=== PATIENT | male | born 1965 | race Caucasian/White ===

== ENCOUNTER 2020-04-02 10:06 | Outpatient (CLI) | payer OTHER, SELFPAY ==
--- NOTE | ~2020-04-02 | US_ITS ---
EXAMINATION: US carotid duplex BI DATE: 04/02/2020 10:53 INDICATION: Carotid atherosclerotic calcification seen on x-ray. TECHNIQUE: Grayscale, color Doppler, and pulsed Doppler images of the cervical carotid arteries were obtained. The degree of vessel stenosis is placed in one of the following categories: normal, <50%, 5 0-69%, >=70% but less than near-occlusion, near-occlusion, or total occlusion. Note that percent sten osis relative to normal distal artery lumen diameter is indirectly measured from velocity measurement s as described by Aniceto, et al. Radiology 2003; 229:340-346. COMPARISON: None. FINDINGS: RIGHT: The right common carotid artery (CCA) peak systolic velocity (PSV) is 126 cm/s. The right internal ca rotid artery (ICA) PSV is 100 cm/s. The right ICA end-diastolic velocity (EDV) is 29 cm/s. The right ICA/CCA PSV ratio is 0.8. Grayscale and color Doppler images yield an estimate of <50% diameter reduc tion from plaque in the ICA. The external carotid artery (ECA) PSV is 134 cm/s. There is antegrade fl ow in the right vertebral artery. LEFT: The left CCA PSV is 110 cm/s. The left ICA PSV is 126 cm/s. The left ICA EDV is 40 cm/s. The left ICA /CCA PSV ratio is 1.1. Grayscale and color Doppler images including secondary Doppler criteria yield an estimate of <50% diameter reduction from small amount of plaque on grayscale images in the ICA. Th e ECA PSV is 126 cm/s. There is antegrade flow in the left vertebral artery. IMPRESSION: 1. <50% stenosis in the right internal carotid artery. 2. <50% stenosis in the left internal carotid artery. Reviewed, dictated and finalized at location A.
== END 2020-04-02 10:07 | disposition home or self-care (01) ==
PROVIDERS: PCP Family Medicine; Visit Provider Family Medicine
DX: E11.29 Type 2 diabetes mellitus with other diabetic kidney complication (principal); I65.23 Occlusion and stenosis of bilateral carotid arteries
CPT/HCPCS: 93880

== ENCOUNTER 2020-11-03 07:44 | Outpatient (CLI) | payer OTHER, SELFPAY ==
--- NOTE | ~2020-11-03 | MR_ITS ---
EXAMINATION: MR cervical spine wo con DATE: 11/03/2020 09:22 INDICATION: Neck trauma. Myelopathy. TECHNIQUE: Magnetic resonance imaging (MRI) of the cervical spine was performed without intravenous c ontrast. Sequences included sagittal T2-weighted FSE, sagittal STIR FSE, sagittal T1-weighted FSE, ax ial MERGE, and axial T2-weighted FSE. COMPARISON: Cervical spine MRI 07/26/2019 FINDINGS: Bone alignment is normal. Vertebral body heights are normal. There is mildly decreased disc height at C5-C6 and mildly decreased disc height at C6-C7. The spinal cord signal intensity is clark l. The following disc levels are specifically discussed: C2-C3: The disc does not extend beyond the endplate margin. There is no uncovertebral joint osteoarth ritis. There is mild right and severe left facet joint osteoarthritis. There is mild left neural fora jayant stenosis. There is no central canal stenosis. C3-C4: The disc does not extend beyond the endplate margin. There is moderate right and mild left unc overtebral joint osteoarthritis. There is mild bilateral facet joint osteoarthritis. There is mild ri ght neural foraminal stenosis. There is no central canal stenosis. C4-C5: The disc is bulging and has an annular fissure. There is mild bilateral uncovertebral joint os teoarthritis. There is mild bilateral facet joint osteoarthritis. There is mild right neural foramina l stenosis. There is mild central canal stenosis. C5-C6: The disc is bulging. There is severe bilateral uncovertebral joint osteoarthritis. There is mi ld bilateral facet joint osteoarthritis. There is mild bilateral neural foraminal stenosis. There is mild central canal stenosis with ventral indentation of spinal cord. C6-C7: The disc is bulging. There is mild right and moderate left uncovertebral joint osteoarthritis. There is mild lateral facet joint osteoarthritis. There is mild left neural foraminal stenosis. Ther e is mild central canal stenosis. C7-T1: The disc does not extend beyond the endplate margin. There is no uncovertebral joint osteoarth ritis. There is severe bilateral facet joint osteoarthritis. There is mild bilateral neural foraminal stenosis. There is no central canal stenosis. IMPRESSION: 1. Moderate cervical spondylosis, stable from 07/26/2019. Reviewed, dictated and finalized at location A.
== END 2020-11-03 07:45 | disposition home or self-care (01) ==
LOC: ANHIMG 07:49
PROVIDERS: PCP Family Medicine; Visit Provider Nurse Practitioner Acute Care
DX: M47.13 Other spondylosis with myelopathy, cervicothoracic region (principal)
CPT/HCPCS: 72141

== ENCOUNTER → 2020-11-17 01:37 | Outpatient (CLI) | payer OTHER, SELFPAY ==
[2020-11-17 20:13] LABS: SARS-CoV-2 RNA PCR Negative
== END ==
PROVIDERS: Physician Assistant; PCP Family Medicine; Visit Provider Internal Medicine Cardiovascular Disease
DX: R05 Cough (principal); R52 Pain, unspecified; Z20.822 Contact with and (suspected) exposure to COVID-19
CPT/HCPCS: C9803; U0003; U0005

== ENCOUNTER 2020-11-20 02:51 | Day surgery (SDC) | payer OTHER, SELFPAY ==
[2020-11-19 15:38] VITALS: BMI 31.4
[2020-11-20] VITALS (12 sets, daily range): BP systolic 127–167; BP diastolic 72–93; PULSE 80–98; RESP 14–22; TEMP 36.4–36.5; O2SAT 92–98; BMI 31.2
[2020-11-20 09:55] LABS: Hematocrit 45.6 % (42.0-52.0); Hemoglobin 16.1 g/dL (14.0-18.0); Mean Corpuscular HGB Conc 35.3 g/dl (32-36); Mean Corpuscular Hemoglobin 31.1 pg (26-34); Mean Corpuscular Volume 88.2 fl (80-100); Mean Platelet Volume 10.5 fl (7.4-10.4); Platelet Count Result 206 k/mm3 (150-375); Red Blood Count 5.17 M/mm3 (4.6-6.20); Red Cell Distribution Width 11.8 % (11.5-14.5); White Blood Count 6.8 K/mm3 (4.5-10.0)
[2020-11-20 10:04] LABS: INR 0.8; Prothrombin Time 12.1 Seconds (11.1-14.7)
[2020-11-20 10:15] LABS: Anion Gap 10 mmol/L (8-16); Blood Urea Nitrogen 13 mg/dL (9-20); Calcium 9.2 mg/dL (8.4-10.2); Carbon Dioxide 23 mmol/L (22-30); Chloride 106 mmol/L (98-107); Estimated CRCL calculation 110 ml/min; Estimated Glomerular Filt Rate > 60; Glucose 155 mg/dL (75-110); Potassium 4.3 mmol/L (3.4-5.0); Sodium 139 mmol/L (137-145)
--- NOTE | 2020-11-20 11:00 | WPDHPUPDATE1 ---
History and Physical Update Update Date/Time: 11/20/20 11:00 History and Physical has been reviewed, including an updated exam of the patient. There are NO changes in the patient's condition. Risks, benefits, and alternatives have been discussed and questions answered. Patient agrees to proceed with procedure.
--- NOTE | 2020-11-20 11:00 | WPDMODSED ---
Moderate Sedation Note-Pt Data Patient Data Allergies Allergy/AdvReac Type Severity Reaction Status Date / Time Penicillins Allergy Intermediate Rash Verified 10/15/20 15:37 adhesive tape Allergy Rash Verified 10/15/20 15:37 Home Medications Medication Instructions Recorded Confirmed Type Adult Low Dose Aspirin 81 mg PO DAILY 07/30/19 11/19/20 History Adult One Daily Multivitamin 1 tab-cap PO DAILY 07/30/19 11/19/20 History metformin 500 mg tablet,extended See Rx Instructions .ROUTE 07/07/20 11/19/20 Rx release 24 hr .COMPLEX #360 tablet glimepiride 2 mg tablet See Rx Instructions .ROUTE 07/14/20 11/19/20 Rx .COMPLEX #30 tablet fluticasone propionate 50 1 spray NASAL DAILY #1 unit 08/06/20 11/19/20 Rx mcg/actuation nasal spray,suspension atorvastatin 20 mg tablet 20 mg PO DAILY #90 tablet 08/18/20 11/19/20 Rx cyclobenzaprine [Flexeril] 10 mg PO BID PRN 11/19/20 11/19/20 History loratadine [Claritin] 10 mg PO DAILY 11/19/20 11/19/20 History sildenafil [Viagra] 50 mg PO DAILY PRN 11/19/20 11/19/20 History Sedation/Anesthesia: No previous sedation/anesthesia problems (including family history). [facility] Past Medical History Medical History Carotid atherosclerosis COVID-19 virus detected Diabetes Hyperlipidemia Influenza A Obesity Surgical History Surgical History S/P nasal septoplasty Social History Social History Smoking status: Never smoker Second hand tobacco smoke exposure: No Alcohol intake: current Alcohol use details: Occasional alcohol use, last drink last summer Substance use: never Substance use type: does not use Living arrangements: with family Gender identity (if verbalized by the patient): Male Sexual Orientation (if Verbalized by the Patient): Straight or Heterosexual Spiritual care concerns: No Mod Sed Physical Exam Physical Exam Pre Procedural Exam: Normal: Appearance, Eyes, Ears, Nose, Neck, Throat, Airway, Lungs, Heart Size, Heart Rate, Heart Rhythm, Neuro Exam, Abdomen, Liver, Kidneys, Spleen, Breasts, Genitalia, Extremities and Skin Hours since solid foods: 8 Hours since liquid intake: 8 Internal Medicine - PN: Obj Da Vital Signs Vital Signs: Vital Signs - 24 hr 11/20/20 09:39 Temperature 36.4 C Pulse Rate 98 Respiratory Rate 20 Blood Pressure 167/90 H Pulse Oximetry 97 Labs CBC & Chem 7: 11/20/20 09:35 11/20/20 09:35 Labs: Laboratory Results - last 24 hr 11/20/20 11/20/20 11/20/20 09:35 09:35 09:35 WBC 6.8 RBC 5.17 Hgb 16.1 Hct 45.6 MCV 88.2 MCH 31.1 MCHC 35.3 RDW 11.8 Plt Count 206 MPV 10.5 H PT 12.1 INR 0.8 Sodium 139 Potassium 4.3 Chloride 106 Carbon Dioxide 23 Anion Gap 10 BUN 13 Creatinine 0.70 Estim Creat Clear Calc 110 Estimated GFR > 60 Glucose 155 H Calcium 9.2 ASA Classification/Sedation ASA Classification/Sedation ASA Class: I Emergent: No Risks: Risks, benefits and alternatives explained and patient/family accepted plan for sedation. Patient re-evaluated immediately prior to sedation.
--- NOTE | 2020-11-20 11:01 | WPDCARDPROC ---
Cardiac Cath Procedure Note Date of procedure:: 11/20/20 Performing physician:: Karen Elizondo MD date of service November 20, 2020 Indication:: abnormal stress test, exertional chest pain Brief clinical history:: this is 55-year-old patient past medical history of diabetes, hypertension who has been experiencing chest pain for about a couple years. Underwent stress testing that shows inferior wall defect suspicious for old HI however patient is symptomatic with exertional chest pain. And therefore patient is here to define coronary anatomy Procedure Procedure performed:: 1-Moderate sedation that started at 11:05 a.m. and ended at 11:31 a.m. using2 mg of Versed and 50mcg fentanyl. The registered nurse was alon lloyd 2-Selective left and right coronary angiogram. 3-Left heart catheterization with measurement of LVEDP and measurement of gradient across aortic valve. 4-Right common femoral arterial angiogram. 5-Deployment of 6 Telugu Angio-Seal. Sedation/Medication given:: Moderate sedation. Access site:: Right common femoral artery. Estimated blood loss:: 10cc Procedure note:: After informed consent patient was brought in to labeling strategist with the was draped and prepped in usual manner. Moderate sedation was given and the right groin was infiltrated using 1% lidocaine. Five Telugu sheath was obtained using micropuncture needle and the modified Seldinger technique. Selective left coronary angiogram was done using JL4 catheter with the tip of the catheter placed in the left main coronary artery. Selective right coronary angiogram was done using JR4 catheter with the tip of the catheter placed to the right coronary artery. After that 5 Telugu pigtail catheter was advanced across the aortic valve into the left ventricle with measurement of LVEDP and measurement of gradient across aortic valve. Right common femoral arterial angiogram was done. Findings:: 1- left coronary artery is a large artery that divides into large LAD, Large ramus intermedius and small left circumflex artery. Left main has diffuse 50%. 2- left anterior descending artery is a large artery that runs and wraps around the apex. Has diffuse 70% stenosis throughout the vessel. Large diagonal 1 branch that has proximal 80%. 3- leftcircumflex artery is Smaller artery and diffusely diseased. 4- Ramus intermedius is a large artery and has diffuse proximal 70%. 4- right coronary artery is Large artery and dominant and has 99% stenosis in the mid segment. Extensive collaterals from the [id number]. 5- LVEDP was 10 mm Hgand no gradient across aortic valve. 6- opening arterial pressure was 160/80 and closing pressure was 150/80 7- LV angiogram shows normal LV systolic function overall. Some inferior wall hypokinesis. 7- right femoral artery angiogram shows no significant disease in the right common femoral artery. Conclusion:: left main and severe 3 vessel disease. Overall normal LV function. Assessment and Plan Additional Plan assess for CABG.
[2020-11-20] MEDS: HEPARIN SOD/D5W 100 UNITS/ML 25,000 UNITS/250 ML BAG 9 UNITS IV CONT (15:39)
[2020-11-20] MEDS: SODIUM CHLORIDE 0.9% IV 1,000 ML 125 ML IV CONT (15:40)
[2020-11-20 19:10] LABS: Glucose Point of Care 124 (65-105)
[2020-11-20] MEDS: SCOPOLAMINE 1.5 MG PATCH TRANSDERM (20:23)
[2020-11-20 20:43] LABS: INR 0.9; Prothrombin Time 13.1 Seconds (11.1-14.7)
[2020-11-20 20:44] LABS: Partial Thromboplastin Time 40.3 SECONDS (22.3-36.8)
[2020-11-20] MEDS: HEPARIN SODIUM 5,000 UNITS/ML VIAL 4000 UNITS IV PUSH (20:49)
== END 2020-11-20 21:25 | disposition home or self-care (01) ==
LOC: ANHCATHLAB 09:04 → ANHCPC 13:28
PROVIDERS: PCP Family Medicine; Visit Provider Internal Medicine Cardiovascular Disease
PROC: 4A023N7 Measurement of Cardiac Sampling and Pressure, Left Heart, Percutaneous Approach (ICD-10-PCS; CPT 93452; principal; 2020-11-20 10:30)
DX: I25.10 Atherosclerotic heart disease of native coronary artery without angina pectoris (principal); R94.39 Abnormal result of other cardiovascular function study; R07.89 Other chest pain; I10 Essential (primary) hypertension; E11.9 Type 2 diabetes mellitus without complications; Z79.84 Long term (current) use of oral hypoglycemic drugs; Z79.82 Long term (current) use of aspirin; E78.5 Hyperlipidemia, unspecified; Z86.16 Personal history of COVID-19
CPT/HCPCS: 36415; 80048; 85027; 85610; 85730; 93458; A9270; C1760; C1887; C1894; G0269; J1644; J2250; J3010; J7030

== ENCOUNTER → 2021-03-17 09:02 | Outpatient (CLI) | payer OTHER, SELFPAY ==
--- NOTE | ~2021-03-17 | XR_ITS ---
EXAMINATION: XR knee RT 3V DATE: 03/17/2021 09:58 INDICATION: Right knee pain TECHNIQUE: Three views of the right knee were obtained. COMPARISON: None. FINDINGS: Alignment is normal. No fracture or osteochondral lesion. There is mild tricompartmental os teoarthritis characterized by tiny marginal osteophytes. No joint effusion/synovitis. Surgical clips are seen in the medial soft tissues near the knee likely related to vein graft harvesting. IMPRESSION: 1. No radiographic correlate for the patient's symptoms. Reviewed, dictated and finalized at location A.
--- NOTE | ~2021-03-17 | XR_ITS ---
EXAMINATION: XR sternum min 2V INDICATION: Unspecified chest pain, knot on the sternum TECHNIQUE: Two views of the sternum were obtained. COMPARISON: None available FINDINGS: Median sternotomy wires and mediastinal surgical clips are seen, likely from prior coronary artery bypass grafting. No definite abnormality of the sternum is identified although sensitivity of radiographs is low. IMPRESSION: 1. No definite abnormality of the sternum identified although sensitivity of radiographs is low. Reviewed, dictated and finalized at location A. IMPRESSION: 1. No definite abnormality of the sternum identified although sensitivity of ra diographs is low.
== END ==
PROVIDERS: PCP Family Medicine; Visit Provider Physician Assistant
DX: R07.89 Other chest pain (principal)
CPT/HCPCS: 71120; 73562

== ENCOUNTER 2021-04-13 15:33 | Outpatient (CLI) | payer OTHER, SELFPAY ==
--- NOTE | ~2021-04-13 | US_ITS ---
EXAMINATION: US soft tissue LE DATE: 04/13/2021 15:57 INDICATION: Lump at the left thigh TECHNIQUE: Multiple grayscale ultrasound images of the region of concern at the left thigh were obtai maru. COMPARISON: None FINDINGS/IMPRESSION: There is a 1.7 x 0.9 x 0.3 cm lenticular region of increased echogenicity in the subcutaneous fat allen rounding a tiny central anechoic area. Appearance suggests inflammation of the normal subcutaneous fa t surrounding tiny fluid collection which could be either infectious or posttraumatic in etiology. Reviewed, dictated and finalized at location B.
== END 2021-04-13 15:34 | disposition home or self-care (01) ==
PROVIDERS: PCP Family Medicine; Visit Provider Physician Assistant
DX: M62.89 Other specified disorders of muscle (principal)
CPT/HCPCS: 76882

== ENCOUNTER 2021-04-16 07:15 | Outpatient (RCR) | payer OTHER, SELFPAY ==
[2021-01-23 15:26] VITALS: BP 156/84; PULSE 112; RESP 16; TEMP 36.4; O2SAT 99
[2021-01-23 15:29] VITALS: PULSE 112
[2021-01-26 08:36] LABS: Glucose Point of Care 191 mg/dl (65-105)
--- NOTE | 2021-02-19 07:45 | PCCPR ---
Patient left message stating he would be absent for today's session but will return next week.
[2021-04-15 08:13] LABS: Glucose Point of Care 92 mg/dl (65-105)
[2021-04-15 08:13] LABS: Glucose Point of Care 61 mg/dl (65-105)
== END 2021-04-16 09:04 | disposition home or self-care (01) ==
LOC: ANHCPREHAB 07:15
PROVIDERS: PCP Family Medicine; Visit Provider Internal Medicine Cardiovascular Disease
DX: Z95.1 Presence of aortocoronary bypass graft (principal)
CPT/HCPCS: 82948; 93798

== ENCOUNTER 2022-01-11 15:39 | Outpatient (CLI) | payer OTHER, SELFPAY ==
--- NOTE | ~2022-01-11 | MR_ITS ---
EXAMINATION: MR cervical spine wo con DATE: 01/11/2022 16:31 INDICATION: Facet arthritis of cervical region. TECHNIQUE: Magnetic resonance imaging (MRI) of the cervical spine was performed without intravenous c ontrast. Sequences included sagittal T2-weighted FSE, sagittal T2-weighted FS FSE, sagittal T1-weight ed FSE, axial MERGE, and axial T2-weighted FSE. COMPARISON: Cervical spine MRI 11/03/2020 FINDINGS: There is 5 degrees levocurvature of cervicothoracic spine. Vertebral body heights are clark l. There is mildly decreased disc height at C4-C5 and moderately decreased disc height at C5-C6. The spinal cord signal intensity is normal. The following disc levels are specifically discussed: C2-C3: The disc does not extend beyond the endplate margin. There is no uncovertebral joint osteoarth ritis. There is mild right and severe left facet joint osteoarthritis. There is mild left neural fora jayant stenosis. There is no central canal stenosis. C3-C4: The disc is bulging. There is moderate right and mild left uncovertebral joint osteoarthritis. There is severe right and mild left facet joint osteoarthritis. There is mild right neural foraminal stenosis. There is mild central canal stenosis. C4-C5: The disc is bulging and has an annular fissure. There is mild bilateral uncovertebral joint os teoarthritis. There is severe right and mild left facet joint osteoarthritis. There is mild right billy ral foraminal stenosis. There is mild central canal stenosis with ventral indentation of the spinal c ord. C5-C6: The disc is bulging. There is severe bilateral uncovertebral joint osteoarthritis. There is mi ld bilateral facet joint osteoarthritis. There is mild bilateral neural foraminal stenosis. There is mild central canal stenosis with ventral indentation of the spinal cord. C6-C7: The disc is bulging. There is moderate bilateral uncovertebral joint osteoarthritis. There is mild bilateral facet joint osteoarthritis. There is mild right and moderate left neural foraminal charla nosis. There is mild central canal stenosis. C7-T1: The disc does not extend beyond the endplate margin. There is no uncovertebral joint osteoarth ritis. There is severe bilateral facet joint osteoarthritis. There is mild bilateral neural foraminal stenosis. There is no central canal stenosis. IMPRESSION: 1. Moderate cervical spondylosis, stable from 11/03/2020. Reviewed, dictated and finalized at location A.
== END 2022-01-11 15:40 | disposition home or self-care (01) ==
PROVIDERS: PCP Family Medicine; Visit Provider Nurse Practitioner Acute Care
DX: M47.812 Spondylosis without myelopathy or radiculopathy, cervical region (principal)
CPT/HCPCS: 72141

== ENCOUNTER 2022-03-05 08:04 | Outpatient (CLI) | payer OTHER, SELFPAY ==
--- NOTE | ~2022-03-05 | XR_ITS ---
EXAMINATION: XR finger 2nd RT min 2V DATE: 03/05/2022 08:22 INDICATION: Pain at the right second index finger TECHNIQUE: Dorsal palmar, lateral and 2 oblique views of the right second digit were obtained COMPARISON: None FINDINGS: Alignment is normal. No fracture. Mild polyarticular osteoarthritis at the first and second metacarpo phalangeal second proximal and distal interphalangeal joints. Asymmetric mild soft tissue swelling al jasper the radial aspect of the second digit. IMPRESSION: 1. 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 No acute osseo us abnormality. Reviewed, dictated and finalized at location B. IMPRESSION: 1. 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 No acute osseous abnormality.
== END 2022-03-05 08:05 | disposition home or self-care (01) ==
PROVIDERS: PCP Family Medicine; Visit Provider Family Medicine
DX: M79.646 Pain in unspecified finger(s) (principal); M19.041 Primary osteoarthritis, right hand
CPT/HCPCS: 73140

== ENCOUNTER 2022-11-20 00:57 | Emergency (ER) | payer OTHER, SELFPAY ==
[2022-11-20 00:58] VITALS: BP 145/79; PULSE 84; RESP 14; TEMP 36.2; O2SAT 99
--- NOTE | 2022-11-20 01:17 | ED.EYEPROB ---
HPI - Eye Problem General Chief complaint: Eye Problems Stated complaint: right eye FB Time Seen by Provider: 11/20/22 01:05 History of Present Illness HPI Narrative: Patient is a 57-year-old male here with concerns of a right eye irritation x6 hours. Patient states that he was driving outside with the windows down and he believes some dust got into his right eye. Since then he has had a foreign body sensation, irritation and watery discharge. He denies any blurry vision or significant pain in the eye. He does not wear contact lenses but does wear eyeglasses. Related Data Home Medications Medication Instructions Recorded Confirmed Adult Low Dose Aspirin 81 mg PO DAILY 07/30/19 11/10/22 Adult One Daily Multivitamin 1 tab-cap PO DAILY 07/30/19 11/10/22 cyclobenzaprine 10 mg tablet 10 mg PO BID PRN Pain 11/19/20 11/10/22 metoprolol tartrate 25 mg PO BID 01/23/21 11/10/22 degadgvf-qoo-vjjga acid 300 1 tablet PO DAILY 01/23/21 11/10/22 mcg-lycopene 600 mcg-lutein 300 mcg tablet (Centrum Silver Men) ezetimibe 10 mg tablet (Zetia) 10 mg PO DAILY 05/04/21 11/10/22 Allergies Allergy/AdvReac Type Severity Reaction Status Date / Time Penicillins Allergy Intermediate Rash Verified 11/20/22 00:58 adhesive tape Allergy Rash Verified 11/20/22 00:58 Review of Systems Review of Systems: Gen.: Denies fevers or chills Eyes: reports right eye pain ENT: Denies congestion Respiratory: Denies shortness of breath or cough CV: Denies chest pain or palpitations GI: Denies abdominal pain nausea, emesis or diarrhea denies burning, urgency, frequency or hematuria Musculoskeletal: Denies back pain or muscle pain Neuro: Denies numbness, tingling, weakness or focal weakness Skin: Denies rash Except as documented, all other systems reviewed and negative [facility] Past Medical History Medical History Carotid atherosclerosis COVID-19 virus detected Diabetes Hyperlipidemia Influenza A Obesity Surgical History Surgical History S/P CABG x 4 S/P nasal septoplasty Family History Family History Other Unknown family medical history Social History Social History Smoking status: Never smoker Second hand tobacco smoke exposure: No Alcohol intake: current Alcohol use details: Occasional alcohol use, last drink last summer Substance use: never Substance use type: does not use Living arrangements: with family Occupation/Education: occupation Gender identity (if verbalized by the patient): Male Sexual Orientation (if Verbalized by the Patient): Straight or Heterosexual Spiritual care concerns: No Exam Narrative: APPEARANCE: Well appearing, no pain in distress, well-nourished. Head: Normocephalic and atraumatic. EYES: PERRLA/EOMI, conjunctivae clear NOSE: No nasal drainage EARS: thick yellow discharge to the right eye. There is diffuse injection of the conjunctivae, pupils are equal round and reactive. small area of uptake on fluorescein exam in the center of the cornea THROAT: Oropharynx is clear. Mucous membranes are moist. NECK: Supple. No adenopathy, no masses. RESPIRATORY: Airway patent, respirations nonlabored. Clear to auscultation bilaterally, no rales, rhonchi, wheezing. CARDIOVASCULAR: Regular rate and rhythm without murmurs, rubs, or gallops. ABDOMINAL: Normoactive bowel sounds. Soft, nontender, nondistended. No rebound tenderness or guarding. MUSCULOSKELETAL: Extremities are warm and well-perfused. Moves all extremities well. No edema. NEURO: Normal speech. No focal neurologic deficits. SKIN: Skin is warm and dry. No rashes. PSYCHIATRIC: Normal affect/mood. Course Vital Signs Vital signs: Vital Signs Temperature 97.2 F L 11/20/22 00:58 Pulse Rate 84 11/20/22 00:5
[2022-11-20] MEDS: FLUORESCEIN SOD 1 MG/STRIP EACH EYE (01:41)
[2022-11-20] MEDS: TETRACAINE HCL 0.5% OPHTH SOLN 4 ML BTL 1 DROP EACH EYE (01:41)
[2022-11-20 01:49] VITALS: BP 135/82; PULSE 82; RESP 16; O2SAT 99
== END 2022-11-20 01:50 | disposition home or self-care (01) ==
PROVIDERS: Emergency Provider Physician Assistant; PCP Family Medicine
DX: S05.01XA Injury of conjunctiva and corneal abrasion without foreign body, right eye, initial encounter (principal); E78.5 Hyperlipidemia, unspecified; E11.9 Type 2 diabetes mellitus without complications; W22.8XXA Striking against or struck by other objects, initial encounter; Y92.810 Car as the place of occurrence of the external cause
CPT/HCPCS: 99283

== ENCOUNTER 2022-11-23 15:11 | Outpatient (CLI) | payer OTHER, SELFPAY ==
--- NOTE | ~2022-11-23 | US_ITS ---
EXAMINATION: US venous doppler LE RT DATE: 11/23/2022 15:45 INDICATION: Right lower limb pain TECHNIQUE: Grayscale ultrasound images without and with compression and Doppler ultrasound images of the right lower extremity veins were obtained. COMPARISON: None. FINDINGS: The visualized portions of right common femoral vein, profunda (deep) femoral vein, femoral vein, pop liteal vein, peroneal trunk, posterior tibial veins, peroneal veins, gastrocnemius vein and greater s aphenous vein outflow are patent. IMPRESSION: 1. No deep venous thrombosis in the right lower limb. Reviewed, dictated and finalized at location A.
== END 2022-11-23 15:12 | disposition home or self-care (01) ==
PROVIDERS: PCP Family Medicine; Visit Provider Physician Assistant
DX: M79.604 Pain in right leg (principal)
CPT/HCPCS: 93971

== ENCOUNTER 2023-05-06 09:23 | Emergency (ER) | payer OTHER, SELFPAY ==
--- NOTE | ~2023-05-06 | CT_ITS ---
EXAMINATION: CT abdomen pelvis w con DATE: 05/06/2023 11:35 INDICATION: Right flank pain. TECHNIQUE: Computed tomography (CT) of the abdomen and pelvis was performed with 100 mL Omnipaque 350 intravenous contrast. Automated exposure control and iterative reconstruction technique were employe d. The dose-length product was 449.32 mGy-cm. COMPARISON: None. FINDINGS: The visualized portions of the lung bases demonstrate mild atelectasis. No pleural effusion . The heart size is normal. There are coronary artery calcifications. No pericardial effusion. There is mild pectus excavatum. Median sternotomy wires are noted. The liver, gallbladder, spleen, pancreas , adrenal glands, and kidneys are normal. The prostate is moderately enlarged. There are no dilated l oops of bowel. The appendix is normal. There is calcified atherosclerosis of the aorta and many of th e other arteries. There are no pathologically enlarged lymph nodes. There is no free intraperitoneal fluid. There is mild thoracic and lumbar spondylosis. IMPRESSION: 1. No etiology for the patient's symptoms. Reviewed, dictated and finalized at location A.
[2023-05-06 09:38] VITALS: BP 142/80; PULSE 74; RESP 16; TEMP 36.6; O2SAT 100
[2023-05-06 10:18] LABS: Basophils Absolute Auto 0.1 K/mm3 (0.0-0.1); Eosinophils Absolute Auto 0.3 K/mm3 (0-0.3); Eosinophils Percent Auto 3.3 % (0-4.4); Hemoglobin 15.6 g/dL (14.0-18.0); Immature Granulocyte Absolute 0.02 K/mm3 (0.00-0.031); Immature Granulocyte Percent A 0.2 % (0-0.5); Lymphocytes Absolute Auto 1.55 K/mm3 (0.9-3.2); Lymphocytes Percent Auto 18.7 % (18.3-44.2); Mean Corpuscular HGB Conc 34.7 g/dl (32-36); Mean Corpuscular Hemoglobin 31.9 pg (26-34); Mean Platelet Volume 9.9 fl (7.4-10.4); Monocytes Absolute Auto 0.5 K/mm3 (0.1-0.6); Monocytes Percent Auto 6.1 % (2.6-8.5); Neutrophils Absolute Auto 5.9 K/mm3 (1.3-6.7); Neutrophils Percent Auto 70.7 % (45.5-73.1); Platelet Count Result 226 k/mm3 (150-375); Red Blood Count 4.89 M/mm3 (4.6-6.20); Red Cell Distribution Width 11.7 % (11.5-14.5); White Blood Count 8.3 K/mm3 (4.5-10.0)
[2023-05-06 10:21] LABS: Appearance Urine Clear (Clear); Bilirubin Urine Negative (Negative); Blood Urine Negative (Negative); Color Urine Yellow (Yellow); Glucose Urine UA 3+ mg/dL (Negative); Ketones Urine 1+ mg/dL (Negative); Leukocyte Esterase Ur Negative LEU/UL (Negative); Nitrate Urine Negative (Negative); Protein Urine Negative (Negative); Specific Grav Ur 1.024 (1.001-1.035); Urobilinogen Urine 0.2 mg/dL (<2.0)
[2023-05-06 10:35] LABS: Add Urine Microscopic? YES
[2023-05-06] MEDS: SODIUM CHLORIDE 0.9% IV 1,000 ML 999 ML IV CONT (11:02)
[2023-05-06] MEDS: MORPHINE SULFATE (*CRX) 4 MG/ML INJ IV PUSH (11:04)
[2023-05-06] MEDS: ONDANSETRON INJ 4 MG/2 ML VIAL IV PUSH (11:06)
[2023-05-06 11:09] LABS: Alanine Aminotransferase 31 U/L (6-50); Albumin Level 4.7 g/dL (3.5-5.1); Alkaline Phosphatase 57 U/L (38-126); Anion Gap 10 mmol/L (8-16); Aspartate Amino Transferase 37 U/L (17-59); Blood Urea Nitrogen 16 mg/dL (9-20); Calcium 9.3 mg/dL (8.4-10.2); Carbon Dioxide 25 mmol/L (22-30); Chloride 101 mmol/L (98-107); Estimated CRCL calculation 108 ml/min; Estimated Glomerular Filt Rate > 60; Glucose 115 mg/dL (65-110); Sodium 136 mmol/L (137-145)
[2023-05-06 11:37] VITALS: O2SAT 99
[2023-05-06 11:45] VITALS: O2SAT 98
[2023-05-06 11:46] VITALS: BP 120/68; O2SAT 96
--- NOTE | 2023-05-06 13:28 | ED.ABDPAIN ---
HPI - Abdominal Pain General Chief Complaint: Abdominal Pain Stated Complaint: right flank pain Time Seen by Provider: 05/06/23 10:01 History of Present Illness HPI narrative: This is a 57-year-old male, with past history of coronary artery disease and hypertension, who presents emergency department complaining of right flank pain since this morning. The patient states about 3:00 this morning, he woke up with quick onset, sharp right flank pain that did not radiate. This was associated with nausea and gradually improved on its own. Today he woke again around 830 this morning with recurrent pain, though this time rated a 6/10. Related Data Home Medications Medication Instructions Recorded Confirmed Adult Low Dose Aspirin 81 mg PO DAILY 07/30/19 02/14/23 Adult One Daily Multivitamin 1 tab-cap PO DAILY 07/30/19 02/14/23 cyclobenzaprine 10 mg tablet 10 mg PO BID PRN Pain 11/19/20 02/14/23 metoprolol tartrate 25 mg PO BID 01/23/21 02/14/23 hftntxjq-ur-avvae 300 mcg-K 60 1 tablet PO DAILY 01/23/21 02/14/23 mcg-lycop 600 mcg-lutein 300 mcg tablet (Centrum Silver Men) ezetimibe 10 mg tablet (Zetia) 10 mg PO DAILY 05/04/21 02/14/23 Allergies Allergy/AdvReac Type Severity Reaction Status Date / Time Penicillins Allergy Intermediate Rash Verified 02/14/23 09:01 adhesive tape Allergy Rash Verified 02/14/23 09:01 Review of Systems Review of Systems: CONSTITUTIONAL: Denies fever, chills, or sweats. CARDIOVASCULAR: Denies chest pain, palpitations, or edema. RESPIRATORY: Denies cough or dyspnea. GASTROINTESTINAL: Right flank pain and nausea denies vomiting, or diarrhea. GENITOURINARY: Denies dysuria or hematuria. SKIN: Denies rash or itching. MUSCULOSKELETAL: Denies back pain, joint pain, or myalgia. NEUROLOGIC: Denies headache, numbness, dizziness, or weakness. PSYCHIATRIC: Denies anxiety or depression. [facility] Past Medical History Medical History Carotid atherosclerosis COVID-19 virus detected Diabetes Hyperlipidemia Influenza A Obesity Surgical History Surgical History S/P CABG x 4 S/P nasal septoplasty Family History Family History Other Unknown family medical history Social History Social History Smoking status: Never smoker Second hand tobacco smoke exposure: No Alcohol intake: current Alcohol use details: Occasional alcohol use, last drink last summer Substance use: never Substance use type: does not use Living arrangements: with family Occupation/Education: occupation Gender identity (if verbalized by the patient): Male Sexual Orientation (if Verbalized by the Patient): Straight or Heterosexual Spiritual care concerns: No Course Course Emergency Course: 13:40 - Labs unremarkable. UA not concerning for UTI. CT abdomen pelvis unremarkable. I suspect the patient's pain may be related to musculoskeletal cause versus a possible kidney stone that has passed. On reevaluation, the patient states his pain is significantly improved. Will discharge with pain medications and recommendation to follow-up with his primary care doctor. Discussed return and emergency precautions including signs/symptoms of acute abdomen and intractable vomiting. The patient voiced understanding and is comfortable with the plan. All questions answered to satisfaction. Vital Signs Vital signs: Vital Signs Temperature 97.8 F 05/06/23 09:38 Pulse Rate 74 05/06/23 09:38 Respiratory Rate 16 05/06/23 09:38 Blood Pressure 142/80 H 05/06/23 09:38 Pulse Oximetry 100 05/06/23 09:38 Temperature 97.8 F 05/06/23 09:38 Pulse Rate 65 05/06/23 14:03 Respiratory Rate 16 05/06/23 14:03 Blood Pressure 133/74 05/06/23 14:03 Pulse Oximetry 100 05/06/23 14:03
[2023-05-06 14:03] VITALS: BP 133/74; PULSE 65; RESP 16; O2SAT 100
== END 2023-05-06 14:10 | disposition home or self-care (01) ==
PROVIDERS: Emergency Provider Preventive Medicine Aerospace Medicine; PCP Family Medicine
DX: R10.31 Right lower quadrant pain (principal); I25.10 Atherosclerotic heart disease of native coronary artery without angina pectoris; I10 Essential (primary) hypertension; E78.5 Hyperlipidemia, unspecified; E11.9 Type 2 diabetes mellitus without complications; Z95.1 Presence of aortocoronary bypass graft; Z79.82 Long term (current) use of aspirin; Z79.84 Long term (current) use of oral hypoglycemic drugs
CPT/HCPCS: 36415; 74177; 80053; 81001; 85025; 96361; 96374; 96375; 99284; J2270; J2405; J7030; Q9967

== ENCOUNTER 2024-03-07 08:56 | Outpatient (CLI) | payer OTHER, SELFPAY ==
--- NOTE | ~2024-03-07 | XR_ITS ---
[id number] Ordering provider: Sharath Bauman History: . LUMBAR RADICULAR PAIN;CERVICAL RADICULOPATHY . Comparison: None. FINDINGS: VERTEBRAL BODIES: Very minimal anterolisthesis at the level of C4-C5 otherwise, Normal height and ali gnment. No visible fracture or subluxation. The dens is intact. Degenerative changes of the spine. DISK SPACES: Narrowing of the disc C4-C5, C5-C6 and C6-C7. Multilevel uncovertebral joint osteoarthri tic changes. PARASPINOUS SOFT TISSUES: No prevertebral soft tissue swelling. IMPRESSION: No acute osseous abnormality cervical spine. Multilevel degenerative disc disease. Reviewed, dictated and finalized at location A.
--- NOTE | ~2024-03-07 | XR_ITS ---
3 VIEWS LUMBAR SPINE Ordering provider: Sharath Bauman History: . LUMBAR RADICULAR PAIN;CERVICAL RADICULOPATHY . Comparison: None. FINDINGS: VERTEBRAL BODIES:Slight anterior loss of volume of L1 is seen most likely chronic. No visible fractu re or subluxation. Degenerative changes of the spine. DISK SPACES: Narrowing of the disc L2-L3, and L3-L4 SOFT TISSUES: Vascular calcification. IMPRESSION: No acute osseous abnormality lumbar spine. Multilevel degenerative disc disease. Reviewed, dictated and finalized at location A.
== END 2024-03-07 08:57 | disposition home or self-care (01) ==
PROVIDERS: PCP Family Medicine; Visit Provider Nurse Practitioner Family
DX: M51.36 Other intervertebral disc degeneration, lumbar region (principal); M50.321 Other cervical disc degeneration at C4-C5 level; M50.322 Other cervical disc degeneration at C5-C6 level; M50.323 Other cervical disc degeneration at C6-C7 level
CPT/HCPCS: 72040; 72110

== ENCOUNTER 2024-04-25 09:06 | Outpatient (CLI) | payer OTHER, SELFPAY ==
--- NOTE | ~2024-04-25 | MR_ITS ---
MRI of the cervical spine Clinical History: Degenerative disc disease Technique: Axial T2-weighted and gradient images, and sagittal T1-weighted, T2-weighted, and STIR rodger ges were acquired. Findings: There is no fracture of the cervical spine. There is 3 mm anterolisthesis of C4 over C5. No suspicious bone marrow signal reality seen. At C2-C3, there is no significant disc bulge or herniation. No spinal canal stenosis, cord compressio n, or neural foraminal narrowing. There is left neural foraminal narrowing with facet arthropathy. At C3-C4, there is minimal disc osteophyte complex. No spinal canal stenosis, cord compression, or ne ural foraminal narrowing. At C4-C5, there is moderate degenerative disc narrowing with minimal disc osteophyte convex. There is right neural foraminal narrowing with right facet arthropathy. Left neural foramen preserved. No see tral canal stenosis or cord compression. At C5-C6, there is moderate degenerative disc narrowing with disc osteophyte complex present. No maddie k canal stenosis or cord compression. There is right neural foraminal narrowing. Left neural foramen preserved. At C6-C7, there is disc osteophyte complex without nori canal stenosis or cord compression. There is mild left neural foraminal narrowing. Right neural foramen preserved. No abnormal signal seen in the spinal cord. Paravertebral soft tissues are unremarkable. Impression: Moderate degenerative spondylosis overall, as detailed above. 3 mm anterolisthesis of C4 over C5. Reviewed, dictated and finalized at [facility]. Impression: Moderate degenerative spondylosis overall, as detailed above. 3 mm anterolisthesis of C4 over C5.
--- NOTE | ~2024-04-25 | MR_ITS ---
MRI of the lumbar spine Clinical History: Recurrent uropathy Technique: Axial T2-weighted images, and sagittal T1-weighted, T2-weighted, and T2 fat-sat images wer e acquired. Findings: There is no fracture or subluxation of the lumbar spine. Vertebral bodies maintain normal h eight and alignment. No suspicious bone marrow signal abnormality seen. At L1-L2, there is no disc bulge or herniation. There is moderate facet joint hypertrophy. No central canal stenosis or neural foraminal narrowing. At L2-L3, there is moderate degenerative disc narrowing. There is diffuse disc bulge with moderate to advanced facet arthropathy. No central canal stenosis or neural foraminal narrowing. L3-L4, there is mild degenerative disc narrowing. There is mild diffuse disc bulge and moderate facet arthropathy. No central canal stenosis. There is minimal bilateral neural foraminal narrowing. At L4-L5, there is mild disc bulge with small annular fissure. There is moderate facet arthropathy. N o central canal stenosis or definite neural foraminal narrowing. At L5-S1, there is minimal disc bulge and mild to moderate facet arthropathy. No central canal stenos is or neural foraminal narrowing. Paravertebral soft tissues are unremarkable. Impression: Mild to [id number] degenerative spondylosis overall, as detailed above. Reviewed, dictated and finalized at [facility]. Impression: Mild to [id number] degenerative spondylosis overall, as detailed above.
== END 2024-04-25 09:07 | disposition home or self-care (01) ==
PROVIDERS: PCP Family Medicine
DX: M47.896 Other spondylosis, lumbar region (principal); M47.897 Other spondylosis, lumbosacral region; M47.892 Other spondylosis, cervical region; M43.12 Spondylolisthesis, cervical region
CPT/HCPCS: 72141; 72148